=== PATIENT | female | born 1990 | race Caucasian/White ===

== ENCOUNTER → 2016-05-19 | Outpatient (REF) | payer OTHER ==
[2016-05-19 11:29] LABS: BASO # 0.1 K/mm3 (0.0-0.2); BASO % 1.5 % (0.0-1.0); EOS # 0.2 K/mm3 (0.0-0.50); LARGE UNSTAINED CELL # 0.1 K/mm3 (0.0-0.4); LARGE UNSTAINED CELL % 1.7 % (0.0-4.0); LYMPH # 2.4 K/mm3 (1.5-6.5); LYMPH % 41.5 % (24.0-44.0); MEAN CORPUSCULAR HEMOGLOBIN 31.7 pg (27.0-33.0); MEAN CORPUSCULAR HGB CONC 33.5 g/dl (32.0-36.5); MEAN CORPUSCULAR VOLUME 94.6 fl (80.0-96.0); MONO # 0.2 K/mm3 (0.0-0.8); MONO % 4.1 % (0.0-5.0); NEUTROPHILS # 2.7 K/mm3 (1.8-7.7); NEUTROPHILS % 48.2 % (36.0-66.0); PLATELET COUNT, AUTOMATED 222 k/mm3 (150-450); RED CELL DISTRIBUTION WIDTH 12.7 % (11.5-14.5); WHITE BLOOD COUNT 5.7 K/mm3 (4.0-10.0)
[2016-05-19 11:46] LABS: VITAMIN B12 LEVEL 446 PG/ML (247-911)
[2016-05-19 12:03] LABS: FREE T4 0.83 NG/DL (0.76-1.46); PERCENT SATURATION 13.3 % (13.2-37.4); TOTAL IRON BINDING CAPACITY 384 UG/DL (250-450)
[2016-05-19 14:41] LABS: PRETREATED FOLATE FOR RBCFOL 11.7 NG/ML
[2016-05-20 09:04] LABS: THYROID PEROXIDASE ANTIBODY < 28.0 U/ML (<60.0)
[2016-05-22 14:16] LABS: MAGNESIUM RBC LEVEL 5.1 mg/dL (4.2-6.8)
== END ==
LOC: M LABDRAW1 11:14
PROVIDERS: ATTEND Nurse Practitioner Pediatrics
DX: F32.1 Major depressive disorder, single episode, moderate (principal); F90.0 Attention-deficit hyperactivity disorder, predominantly inattentive type

== ENCOUNTER → 2016-07-01 | Outpatient (REF) | payer OTHER ==
[2016-07-01 12:28] LABS: IMMUNOGLOBULIN G 935 MG/DL (681-1648)
[2016-07-01 12:35] LABS: CORTISOL AM 9.1 UG/DL (4.3-22.4)
[2016-07-04 00:15] LABS: GAD-65 AUTOANTIBODY <5.0 U/mL (0.0-5.0); Lyme Disease IgG/IgM Antibodie <0.91 ISR (0.00-0.90); Lyme Disease IgM Ab Quantitati <0.80 index (0.00-0.79); TISSUE TRANSGLUTAMINASE IgG <2 U/mL (0-5)
== END ==
LOC: M LABDRAW1 11:43
PROVIDERS: ATTEND Nurse Practitioner Pediatrics
DX: F90.0 Attention-deficit hyperactivity disorder, predominantly inattentive type (principal); F32.1 Major depressive disorder, single episode, moderate; R10.9 Unspecified abdominal pain